=== PATIENT | male | born 1995 | race Caucasian/White ===

== ENCOUNTER → 2018-12-14 13:35 | Outpatient (CLI) | payer MEDICAID ==
[2013-06-26 08:25] VITALS: BMI 23.2
[~2018-12-14 13:35] MED LIST: NORCO 7.5-3251 EACH GT; PHENERGAN25 M1 PO; STOOL SOFTENER250 MG PO
== END | disposition home or self-care (01) ==
LOC: D.US 13:35
PROVIDERS: ATTEND Family Medicine
DX: N50.811 Right testicular pain (principal)

== ENCOUNTER → 2018-12-21 14:40 | Outpatient (CLI) | payer MEDICAID ==
[2013-06-26 08:25] VITALS: BMI 23.2
== END | disposition home or self-care (01) ==
LOC: D.CT 14:30
PROVIDERS: ATTEND Family Medicine
DX: R10.11 Right upper quadrant pain (principal); R10.31 Right lower quadrant pain; R10.12 Left upper quadrant pain; R10.32 Left lower quadrant pain